=== PATIENT | male | born 1980 | race Two or more races ===

== ENCOUNTER 2019-09-26 11:06 | Emergency (ER) | payer MEDICAID ==
[~2019-09-26] VITALS: Ht 165.1 cm; Wt 86.2 kg
[2019-09-26] MEDS ORDERED: TDAP [DIPH/PERTUSSIS/TET] 0.5 ML VIAL IM ONE ×2 (12:07→12:30)
[2019-09-26 12:13] VITALS: BP 137/85
--- NOTE | 2019-09-26 12:13 | NUR ---
Patient discharged to home in stable condition. Written and verbal after care instructions given. Patient verbalizes understanding of instruction.
[2019-09-26] MEDS ORDERED: LIDOCAINE 1% INJ 50 ML MDV IJ ONE (12:30)
[2019-09-26] MEDS ORDERED: BACITRACIN ZINC OINT PACKET 1 EA PACKET TP ONE (12:30)
== END 2019-09-26 12:14 | disposition home or self-care (01) ==
LOC: ER 11:09
DX: S01.01XA Laceration without foreign body of scalp, initial encounter (principal); W20.8XXA Other cause of strike by thrown, projected or falling object, initial encounter; Y93.89 Activity, other specified; Y92.89 Other specified places as the place of occurrence of the external cause; Y99.8 Other external cause status
CPT/HCPCS: 90715

== ENCOUNTER 2019-10-02 12:24 | Emergency (ER) | payer MEDICAID ==
[~2019-10-02] VITALS: Ht 170.2 cm; Wt 85.7 kg
[2019-10-02 12:40] VITALS: BP 145/82
== END 2019-10-02 12:54 | disposition home or self-care (01) ==
LOC: ER 12:27
DX: S01.01XD Laceration without foreign body of scalp, subsequent encounter (principal); X58.XXXD Exposure to other specified factors, subsequent encounter

== ENCOUNTER 2025-04-08 14:39 | Emergency (ER) | payer MEDICAID ==
[~2025-04-08] VITALS: Ht 165.1 cm; Wt 90.7 kg
[2025-04-08 14:55] VITALS: BP 128/74; TEMP 98.3
[2025-04-08 15:21] LABS: APPEARANCE,URINE CLOUDY (CLEAR); BLOOD, URINE 3+ Ery/uL (NEGATIVE); LEUKOCYTE ESTERASE ,URINE TRACE (NEGATIVE); NITRITE, URINE POSITIVE (NEGATIVE); UGLUCOSE NEGATIVE (NEGATIVE)
[2025-04-08] MEDS ORDERED: CIPR500T5 PO (15:39)
[2025-04-08] MEDS: IBUPROFEN 600 MG TABLET PO ONE (15:44)
[2025-04-08 15:45] VITALS: O2SAT 98
[2025-04-08] MEDS: ACETAMINOPHEN ES 500 MG TABLET PO ONE (15:45)
[2025-04-08 15:51] LABS: ADD URINE CULTURE YES; SQUAMOUS EPITHELIAL CELL,UR Few /HPF (None Seen)
== END 2025-04-08 15:48 | disposition home or self-care (01) ==
LOC: ER 14:52
DX: N39.0 Urinary tract infection, site not specified (principal)
CPT/HCPCS: 81001; 87086-TC; 87186-TC